=== PATIENT | male | born 1960 | race Caucasian/White ===

== ENCOUNTER 2017-10-31 07:22 | Day surgery (SDC) | payer BC ==
[~2017-10-31 07:22] MED LIST: Buffered Lidocaine 0.9% SYRIN* 5 ML/SYR SYRINGE INTRADERM ONE; Buffered Lidocaine 0.9% SYRIN* 5 ML/SYR SYRINGE ONE; DiMENhydriNATE IV* 50 MG/ML VIAL IV PUSH PRN; PROCHLORPERAZINE INJ 5 MG/ML 2 ML VIAL IV PRN; ceFAZolin 2 GM PREMIX (*) 2 GM/50 ML BAG IVPB ONE; fentaNYL* 50 MCG/ML 2 ML VIAL (100 MCG VIAL) IV PRN; oxyCODONE/Acetamin 5/325 MG* TAB PO PRN
[2017-10-31] MEDS ORDERED: KETAMINE HCL* 50 MG/ML 10 ML VIAL ONE (07:27)
[2017-10-31] MEDS ORDERED: Lidocaine 1% MPF wEPI 200,000* 30 ML SDV ONE (07:27)
[2017-10-31] MEDS ORDERED: Midazolam* 1 MG/ML 10 ML VIAL (10 MG) ONE (07:27)
[2017-10-31] MEDS ORDERED: fentaNYL* 50 MCG/ML 2 ML VIAL (100 MCG VIAL) ONE (07:27)
[2017-10-31] MEDS ORDERED: Propofol* 10 MG/ML 20 ML BTL IV PUSH ONE (08:19)
[2017-10-31] MEDS ORDERED: Lidocaine 2% PF * 5 ML VIAL ONE (08:19)
[2017-10-31] MEDS ORDERED: Ondansetron INJ* 2 MG/ML VIAL ONE (08:19)
[2017-10-31] MEDS ORDERED: Flumazenil* 0.1 MG/ML 5 ML MDV ONE (08:49)
--- NOTE | 2017-10-31 08:58 | SURGPN ---
Brief Operative Note - Surgery Procedures: Procedures Pre-OP Diagnoses: pancreatic cancer Post-op Diagnosis: same Procedure: Insertion of powerport, needle in Surgeon: Corbin Asst: none Anethesia: local, MAC EBL: minimal IVF: minimal Specimen: none Drains: none 8Fr single lumen power port via R SCV
[2017-10-31 09:37] VITALS: BP 110/59
--- NOTE | 2017-10-31 10:21 | RAD ---
INDICATION: Central line placement COMPARISON: None FINDINGS: 41.1 seconds of fluoroscopy were provided for the surgical department. Fluoroscopic spot imaging of the right chest were obtained for operative control and show placement of a right subclavian catheter in expected position terminating in the superior vena cava . CPT II Codes: 6045F (fluoro time doc)
--- NOTE | 2017-10-31 11:04 | OP ---
CC: Gary Starks MD; Juan Alberto Morocho MD * DATE OF SURGERY: 10/31/17 - [facility] DATE OF : 62 SURGEON: Michael Alaniz MD FLOUR DISTRIBUTOR: None. ANESTHESIOLOGIST: Dr. Bose. ANESTHESIA: Local MAC. PRE-OP DIAGNOSIS: Pancreatic cancer. POSTOP DIAGNOSIS: Pancreatic cancer. OPERATIVE PROCEDURE: Insertion of PowerPort. ESTIMATED BLOOD LOSS: Minimal blood loss. FLUIDS: Minimal crystalloid fluid given. An 8-Russian PowerPort inserted via the right subclavian vein. DESCRIPTION OF PROCEDURE: The patient was identified in the preoperative area, marked, brought to the operating room and placed on the operating table in supine position. Preoperative antibiotics were given. Sequential devices placed in bilateral lower extremities. Gentle sedation was given. The patient' s right upper chest and neck were clipped of hair, prepped and draped in the standard surgical fashion. Timeout was performed. Injection with lidocaine for local block was carried out and the subclavian vein on the right was accessed, a wire inserted and extended to the superior vena cava under fluoroscopy and noted to be in the appropriate position. An incision was made inferior to the wire. A pocket was made for the PowerPort. The wire was then brought into this incision site and the vein was dilated under fluoroscopy. Split-away catheter inserted and the 8-Russian tubing inserted. Split-away catheter removed. Tubing was cut to size and attached to the preflushed PowerPort along with the hub and tucked into the pocket and sutured in the pocket at the medial, lateral and at the hub site with Prolene sutures. The port was accessed and blood was aspirated and flushed with injectable saline. Skin defect was closed in typical fashion along with Steri-Strips and Tegaderm. Next we accessed with the Beltran needle the port. We again aspirated blood, injected injectable saline, and then heparinized saline and taped this to the skin. The patient tolerated the procedure well, was transferred to the PACU in stable condition. [id number]/[facility] #: [id number] [facility] SYSTEMCynthia
== END 2017-10-31 09:56 | disposition home or self-care (01) ==
LOC: OR 07:22
PROVIDERS: ATTEND Surgery
DX: C25.2 Malignant neoplasm of tail of pancreas (principal); E11.9 Type 2 diabetes mellitus without complications
CPT/HCPCS: 76000; C1788; J0690; J1642; J2001; J2250; J2405; J2704; J3010

== ENCOUNTER 2018-03-01 13:58 | Inpatient (IN) | payer BC ==
[2018-03-01] MEDS ORDERED: Ondansetron INJ* 2 MG/ML VIAL IV PRN (14:27)
[2018-03-01] MEDS ORDERED: LORazepam TAB(*) 0.5 MG PO PRN (14:32)
[2018-03-01] MEDS ORDERED: HYDROmorphone TAB* 4 MG PO PRN (14:32)
[2018-03-01] MEDS ORDERED: Pantoprazole IV* 40 MG IV ONE (16:57)
[2018-03-01] MEDS ORDERED: Pancrelipase CAP* 5,000 UNITS CAP PO SCH (17:00)
[2018-03-01] MEDS: PANCRELIPASE 24000 UNIT PO SCH (17:58)
[2018-03-01] MEDS ORDERED: LORazepam TAB(*) 1 MG PO PRN (20:24)
[2018-03-01] MEDS: Prochlorperazine TAB* 10 MG PO PRN (21:22)
[2018-03-01] MEDS: Pantoprazole IV* 80 MG in NS 0.9% 100 ML* 100 ML IVPB SCH (22:08)
--- NOTE | 2018-03-01 22:26 | CONS ---
CONSULTATION REPORT: DATE OF CONSULT: 03/01/18 REQUESTING PROVIDER: Dr. Morocho. INDICATION: Anemia and melena. NARRATIVE: Mr. Merrill is very pleasant 57-year-old gentleman who has a history of pancreatic cancer who developed black stools this morning. He states that he really has not been having much abdominal pain. He denies any GERD symptoms. No nausea. No vomiting. He does feel slightly more fatigued than normal, but nothing too bad according to him. He did present to his oncologist today and hemoglobin was 6.4 down from 8.4 just a couple of days ago. He does take naproxen at least 2 may be upwards of 6 per day for the past couple of months. He denies any vomiting. He has never had upper GI bleeding before. He is hungry. PAST MEDICAL HISTORY: Please see the HPI. Additionally, he has rhabdomyosarcoma of the left eye, hyperlipidemia and pancreatic cancer. PAST SURGICAL HISTORY: Includes left eye surgery at the age of 8 in 1970, tonsillectomy and a knee arthroscopy. MEDICATIONS UPON ADMISSION: Include: 1. Ativan. 2. Bupropion. 3. Compazine. 4. Creon. 5. Acetaminophen. 6. Dilaudid. 7. Glipizide. 8. Naproxen. 9. Paxil. 10. Simvastatin. 11. Zofran. FAMILY HISTORY: Myeloma, pancreatic cancer, coronary artery disease. SOCIAL HISTORY: He drinks 1 drink per day. No smoking. REVIEW OF SYSTEMS: Twelve systems were reviewed, other than that mentioned in the HPI were unremarkable. PHYSICAL EXAM: Temperature is 97.7, blood pressure is 132/83, pulse is 100. General: Well-appearing male in no apparent distress. Alert, oriented, pleasant and fluent. HEENT: Mucous membranes are moist without lesions, ulcers , or exudate. Neck is supple. Trachea is midline. Left eye is absent. Heart : Regular rate and rhythm. Lungs: Clear to auscultation. No wheezes, rales or rhonchi. Abdomen: Positive bowel sounds, soft, nontender, nondistended. No hepatosplenomegaly, masses, rebound or guarding. Skin is warm and dry, but pale. DIAGNOSTIC STUDIES/LAB DATA: Of note, hemoglobin is 6.2 down from 8.4, white count is 2.4, platelets 78, BUN 26, creatinine is 0.79. ASSESSMENT AND PLAN: Mr. Merrill is a very pleasant 57-year-old gentleman with a history of pancreatic cancer who presents with melena who takes naproxen. I do wonder if he could have an ulcer secondary to the naproxen. I will make sure that he has been started on a PPI. Additionally, I will make arrangements for an EGD tomorrow morning at approximately 9:30. He can have a regular diet up until midnight and liquids after. No liquids after 7 a.m. tomorrow morning. We will continue to follow on closely. [id number]/[facility] #: [id number] [facility] CENTERCynthia
[2018-03-01 23:16] LABS: Hematocrit 21 % (42-52); Hemoglobin 6.9 g/dl (14.0-18.0)
[2018-03-02 05:49] LABS: ABS Basophils 0 10^3/ul (0-0.2); ABS Eosinophils 0.1 10^3/ul (0-0.6); ABS Lymphocytes 0.5 10^3/ul (1.0-4.8); ABS Monocytes 0 10^3/ul (0-0.8); ABS Neutrophils 0.9 10^3/ul (1.5-7.7); ABS Nucleated RBC 0 10^3/ul; Eosinophil % 7.5 % (0-6); Hematocrit 22 % (42-52); Hemoglobin 7.2 g/dl (14.0-18.0); Lymphocyte % 31.8 % (25-47); Mean Corpuscular HGB Conc 32 g/dl (31-36); Mean Corpuscular Hemoglobin 24 pg (27-31); Mean Corpuscular Volume 75 fL (80-94); Mean Platelet Volume 9.9 um3 (7.4-10.4); Nucleated Red Blood Cells % 0.2; Platelet Count 56 10^3/ul (150-450); Red Blood Count 2.95 10^6/ul (4.0-5.4); Red Cell Distribution Width 26 % (10.5-15); White Blood Count 1.6 10^3/ul (3.5-10.8)
[2018-03-02 05:53] LABS: INR 1.14 (0.77-1.02)
[2018-03-02 05:55] LABS: EGFR Non-African American 118.6 (>60)
[2018-03-02] MEDS: PANCRELIPASE 24000 UNIT PO SCH (07:50)
[2018-03-02] MEDS: Pantoprazole IV* 80 MG in NS 0.9% 100 ML* 100 ML IVPB SCH ×2 (07:52→08:24)
[2018-03-02] MEDS: Prochlorperazine TAB* 10 MG PO PRN (08:17)
[2018-03-02] MEDS ORDERED: BuPROPion XL* 300 MG TAB.XL PO SCH (09:00)
[2018-03-02] MEDS ORDERED: PARoxetine HCL TAB* 10 MG PO SCH (09:00)
[2018-03-02] MEDS ORDERED: Pantoprazole IV* 80 MG in NS 0.9% 250 ML* 250 ML IVPB SCH (09:19)
--- NOTE | 2018-03-02 10:09 | PN ---
Progress Note - Progress Note Date of Service: 03/02/18 SOAP: Subjective: []Did fine overnight. Had no diarrhea. Wants to go home. Hgb stable after 2 U PRBC. Described several weeks of fatigue, dizzy for several weeks. Has had allot of difficulty with chemotherapy, sever fatigue. Hgb decrease and Tx 1 U PRBC last week. Symptoms progressed yesterday and came in for clinic. Bupropion HCl (Bupropion Xl*) 300 mg PO DAILY [facility] Last Admin: 03/02/18 08:17 Dose: 300 mg Hydromorphone HCl (Dilaudid Tab*) 4 mg PO Q4H PRN PRN Reason: PAIN Pantoprazole Sodium 80 mg/ (Sodium Chloride) 250 mls @ 25 mls/hr IVPB Q10H JACKIE Lorazepam (Ativan Tab(*)) 1 mg PO Q4H PRN PRN Reason: ANXIETY Last Admin: 03/01/18 21:22 Dose: 1 mg Ondansetron HCl (Zofran Inj*) 4 mg IV Q4H PRN PRN Reason: NAUSEA/VOMITING Pancrelipase (Creon (Nf)) 24,000 units PO TID WITH MEALS [facility] Paroxetine HCl (Paxil Tab*) 5 mg PO DAILY [facility] Last Admin: 03/02/18 08:15 Dose: Not Given Prochlorperazine (Compazine Tab*) 10 mg PO Q6H PRN PRN Reason: NAUSEA Last Admin: 03/02/18 08:17 Dose: 10 mg Objective: [] Vital Signs Temp Pulse Resp BP Pulse Ox 98.7 F 82 16 119/69 99 03/02/18 07:23 03/02/18 07:23 03/02/18 08:28 03/02/18 07:23 03/02/18 07:23 HEENT - mucosa moist CTA RRR S1S2 +BS, non tender, healed incision Ext warm and good pulses, no LUIS Assessment: []57 year old with history pancreatic cancer on second line chemotherapy with what appears to UGIB. Differential is ulcer from NSAIDs and steroids with chemotherapy, gastritis, could have bleeding from metastatic focus or tumor invation into small bowl but less likely. Unclear at this time how much of his fatigue over past several weeks has been from bleed vs side effects chemotherapy. Anemia made worse by chemotherapy induced. bone marrow suppression. Plan: []1. EGD today and pending results march d/c from hospital 2. Tx 1 additional unit PRBC now 3. Hold NSAIDS, discussed alternative pain medications. 4. Decreased counts from chemotherapy will follow. Call fever > 100.5. Tx plts < 30K given bleeding.
[2018-03-02] MEDS ORDERED: fentaNYL* 50 MCG/ML 2 ML VIAL (100 MCG VIAL) ONE (10:22)
[2018-03-02] MEDS ORDERED: Midazolam* 1 MG/ML 10 ML VIAL (10 MG) ONE (10:22)
[2018-03-02] MEDS ORDERED: PANCRELIPASE 24000 UNIT PO SCH (12:00)
[2018-03-02] MEDS: Pancrelipase CAP* 5,000 UNITS CAP PO SCH ×2 (12:41→18:41)
[2018-03-02 16:03] VITALS: BP 129/78
[2018-03-02] MEDS ORDERED: Pancrelipase CAP* 5,000 UNITS CAP PO SCH (17:00)
--- NOTE | 2018-03-02 22:48 | PRO ---
CC: Dr. Morocho. PROCEDURE REPORT: DATE OF PROCEDURE: 03/02/18. PROCEDURE PERFORMED: EGD. INDICATION: Anemia, melena. REFERRING PHYSICIAN: Dr. Morocho. MEDICATIONS GIVEN: 1. 100 mcg IV fentanyl. 2. 10 mg IV Versed. DESCRIPTION OF PROCEDURE: After the EGD procedure, including the risks, benefits, and alternatives, not limited to perforation, surgery and/or were explained to Mr. Merrill, written consent was the n obtained. IV medication was given and a bite-block was placed between the teeth. An Olympus gastr oscope was then inserted into the patient's mouth, advanced down the esophagus, into the stomach, and into the jejunum. In the esophagus at the GE junction, he surprisingly had 2 esophageal varices, on e of them was grade 3 and did have a red franki sign to it. No active bleeding was seen. The scope wa s advanced through the GE junction into the body of the stomach. He does have a previous surgical [place] operation. No abnormalities were seen in the stomach. I did not see any ulcers from his napro xen use; however, the surgical anastomosis was extremely friable with numerous superficial blood vess els that bled very easily. I did advance into the blind pouch and the afferent limb for a few centim eters, no abnormalities were seen. The scope was then withdrawn. After retroflexion maneuver within the stomach, did not reveal any gastric varices. The scope was withdrawn from the patient. A Josh 6 Shooter band ligator was placed on the tip of the scope and then reintroduced into the patient's o ropharynx down the esophagus and into the stomach. It was slightly difficult to intubate the upper e sophageal sphincter as the patient did gag a little bit. The scope was then withdrawn back into the distal esophagus, where the grade 3 esophageal varix was again encountered and a band was placed over the red franki sign. The scope was then withdrawn from the patient. He tolerated the procedure well and was returned to his hospital room in stable condition. IMPRESSION: 1. Complete upper endoscopy into the distal duodenum with esophageal variceal band ligation. 2. Esophageal varices, status post band ligation of one. 3. Inflamed surgical anastomosis. 4. I did discuss the case with his primary oncologist, Dr. Morocho. We discussed the possibility of th is being primary liver disease, unlikely to be cirrhosis, but potentially fibrosis. We also discusse d superior mesenteric vein thrombosis and/or portal vein thrombosis. [facility] and if he tolerates his diet, likely will be discharged to home with close fol lowup with Dr. Morocho for further workup of his varices. [id number]/[facility] #: [id number]
== END 2018-03-02 18:50 | disposition home or self-care (01) | DRG 663 ==
LOC: SSU 14:50
PROVIDERS: ADMIT Internal Medicine Hematology & Oncology; ATTEND Internal Medicine Hematology & Oncology
PROC: 30233N1 Transfusion of Nonautologous Red Blood Cells into Peripheral Vein, Percutaneous Approach (ICD-10-PCS; 2018-03-01)
PROC: 0D558ZZ Destruction of Esophagus, Via Natural or Artificial Opening Endoscopic (ICD-10-PCS; principal; 2018-03-02)
DX: D62 Acute posthemorrhagic anemia (principal); K92.1 Melena; C25.9 Malignant neoplasm of pancreas, unspecified; I85.00 Esophageal varices without bleeding; R73.9 Hyperglycemia, unspecified; D61.810 Antineoplastic chemotherapy induced pancytopenia; T45.1X5A Adverse effect of antineoplastic and immunosuppressive drugs, initial encounter; E78.5 Hyperlipidemia, unspecified; X58.XXXA Exposure to other specified factors, initial encounter; Y92.9 Unspecified place or not applicable; Z79.1 Long term (current) use of non-steroidal anti-inflammatories (NSAID); Z79.02 Long term (current) use of antithrombotics/antiplatelets; Z79.899 Other long term (current) drug therapy; Z85.840 Personal history of malignant neoplasm of eye; Z80.8 Family history of malignant neoplasm of other organs or systems; Z80.0 Family history of malignant neoplasm of digestive organs; Z82.49 Family history of ischemic heart disease and other diseases of the circulatory system
CPT/HCPCS: 36415; 36430; 36591; 36593; 80053; 82270; 83036; 85014; 85018; 85025; 85610; 85730; 86850; 86870; 86880; 86900; 86901; 86905; 86922; 96360; 96375; 96413; 96417; 99156; 99157; 99212; 99214; 99222; 99232; A9270-GY; G0463; J1100; J1642; J2250; J2469; J2997; J3010; J9201; J9264; P9040; Q0164

== ENCOUNTER 2018-09-21 11:25 | Inpatient (IN) | payer BC ==
--- OUTSIDE RECORDS SUMMARY | 2018-09-21 12:04 | XMS REPORT ---
:1960 External Reference #:[id number] Author Organization [employer] Address [address] [facility] [address] [place] [address] [place] [address] Phone [phone] Care Team Providers Name Role Phone Gary Starks MD Primary Care Physician Unavailable Payers Type Date Identification Numbers Payment Subscriber Provider Health Maintenance Effective: Policy Number: [facility] Lawrence Merrill Organization (O) 10/26/2016 [id number] PayID: [id number] [address] [address] [place] [address] Problems Date Description Provider Status Onset: 10/15/2016 Carcinoma of pancreas Arpita Chao M.D. Active Onset: 10/05/2016 Disorder of joint of shoulder region Raymond Kirk M.D. Active Family History Date Family Member(s) Problem(s) Comments General heart disease General cancer Social History Type Date Description Comments Lives With spouse Occupation Currently Working Occupation software database architect ETOH Use Consumes 3 glasses of wine per week Smoking Patient has never smoked Exercise Type/Frequency Exercises regularly Allergies, Adverse Reactions, Alerts Date Description Reaction Status Severity Comments 06/25/2014 NKDA active 06/25/2014 Adhesive Tape active Medications Medication Date Status Form Strength Qnty SIG Indications Ordering Provider Acetaminophen 00/00 Active Tablets 325mg 3 tabs po Unknown /0000 every 6 hrs, wean as tolerated Creon 00/[address] [id number] take 2 Unknown /0000 Part capsule before meals and 1 capsule before fatty snacks. Simvastatin 0000 Active Tablets 40mg 1 by mouth Unknown /0000 every day Afrezza 0000 Active Powder 12 units Unknown /0000 three times a day Bupropion HCL ER 0000 Active Tablets 300mg 1 by mouth Unknown (XL) /0000 ER 24HR every day Dilaudid Active Tablets 4mg one tab by Unknown /0000 mouth every 6 h as needed pain Oxycontin Active Tab ER 10mg 1 tab by Unknown /0000 12H mouth three Abuse-Det times a day Pantoprazole Active Tablets 40mg 1 by mouth Unknown Sodium /0000 DR every day Spironolactone Active Tablets 50mg 1 by mouth Unknown /0000 every day Nadolol Active Tablets 40mg 1 by mouth Unknown /0000 every day Paxil Active Tablets 10mg 10 mg by Unknown /0000 mouth daily Zofran Active Tablets 4mg take 1 by Unknown /0000 mouth twice a day as needed for nausea Lantus Solostar Active Solution 100Unit/M Unknown /0000 Pen-Injec L t Uroxatral Active Tablets 10mg take 1 tablet Unknown /0000 ER 24HR by mouth one time daily Compazine Active 10mg Unknown /0000 Crestor Hx Unknown /0000 - 10/03 Alfuzosin HCL ER Hx Tablets 10mg 1 by mouth Unknown /0000 ER 24HR every day Aspirin Hx Tablets 81mg 1 by mouth Unknown /0000 DR every day Bupropion HCL ER Hx Tablets 150mg 1 by mouth Unknown (SR) /0000 ER 12HR once a day Cefazolin Sodium Hx Solution 1gm 2 gm iv every Unknown /0000 Rec 8 hours - through 10/1610/26/16 pharmacy for IV abx is [facility] home infusion Enoxaparin Hx Solution 40mg/0.4M administer Unknown Sodium /0000 L one injection daily into subcutaneous tissue of the abdomen through 10/12/16 Lansoprazole Hx Capsules 30mg 1 by mouth Unknown /0000 DR every day - 10/04 Metoclopramide Hx Tablets 10mg 1 by mouth Unknown HCL /0000 Dispers four times a day before meals and at bedtime x 2 wks Oxycodone HCL Hx Tablets 5mg 1-2 tabs by Unknown /0000 mouth every - 4-6 hours as 10/04 Zyprexa Hx Tablets 5mg 1 by mouth Unknown /0000 qhs - 10/04 Trazodone HCL 00 Hx Tablets 50mg at bedtime as Unknown /0000 needed Cholecalciferol 00 Hx Powder Unknown /0000 Glipizide 00 Hx Tablets 5mg take 1 tablet Unknown /0000 after breakdaily Naproxen 00 Hx Tablets 250mg 1 tablet by Unknown /0000 mouth twice a day as needed pain, with foods Nadolol 00 Hx Tablets 40mg 1 by mouth Unknown /0000 every day Immunizations CPT Code Status Date Vaccine Lot # [id number] Given 09/18/2016 Influenza Virus Vaccine, Quadrivalent, Split, Preservative Free Vital Signs Date Vital Result Comment 08/30/2018 Height 67 inches 5'7" Weight 133.00 lb Heart Rate 68 /min BP Systolic 96 mmHg BP Diastolic 64 mmHg Respiratory Rate 16 /min Body Temperature 97.7 F BMI (Body Mass Index) 20.8 kg/m2 10/29/2017 Height 67 inches 5'7" Weight 162.00 lb Heart Rate 68 /min BP Systolic 124 mmHg BP Diastolic 80 mmHg Respiratory Rate 16 /min Body Temperature 97.6 F BMI (Body Mass Index) 25.4 kg/m2 10/16/2016 Height 67 inches 5'7" Weight 184.00 lb Heart Rate 88 /min BP Systolic Sitting 156 mmHg BP Diastolic Sitting 80 mmHg Respiratory Rate 14 /min Body Temperature 98.3 F BMI (Body Mass Index) 28.8 kg/m2 10/05/2016 Height 67 inches 5'7" Weight 188.00 lb Heart Rate 96 /min BP Systolic Sitting 156 mmHg BP Diastolic Sitting 92 mmHg Respiratory Rate 14 /min Body Temperature 99.4 F BMI (Body Mass Index) 29.4 kg/m2 06/25/2014 Height 67 inches 5'7" Weight 190.00 lb Heart Rate 68 /min BP Systolic 131 mmHg BP Diastolic 86 mmHg BMI (Body Mass Index) 29.8 kg/m2 Results Test Date Test Result H/L Range Note Laboratory test 10/31/2017 Point of Care 103 mg/dL High 70-100 1 finding Glucose Laboratory test 09/27/2017 Cytology [employer] SEE RESULT BELOW 2 finding Comp Metabolic Panel 10/10/2016 Sodium 137 mmol/L 133-145 Potassium 3.9 mmol/L 3.5-5.0 Chloride 104 mmol/L 101-111 Co2 Carbon Dioxide 27 mmol/L 22-32 Anion Gap 6 mmol/L 2-11 Glucose 131 mg/dL High 70-100 Blood Urea Nitrogen 8 mg/dL 6-24 Creatinine 0.89 mg/dL 0.67-1.17 BUN/Creatinine Ratio 9.0 8-20 Calcium 8.8 mg/dL 8.6-10.3 Total Protein 5.5 g/dL Low 6.4-8.9 Albumin 3.3 g/dL 3.2-5.2 Globulin 2.2 g/dL 2-4 Albumin/Globulin Ratio 1.5 1-3 Total Bilirubin 0.20 mg/dL 0.2-1.0 Alkaline Phosphatase 123 U/L High 34-104 Alt 40 U/L 7-52 Ast 69 U/L High 13-39 Egfr Non- 89.1 >60 Egfr 114.6 >60 3 Laboratory test finding 10/10/2016 C Reactive Protein 2.64 mg/L < 5.00 4 CBC Auto Diff 10/10/2016 White Blood Count 2.1 10^3/uL Low 3.5-10.8 5 Red Blood Count 3.35 10^6/uL Low 4.0-5.4 Hemoglobin 9.3 g/dL Low 14.0-18.0 Hematocrit 29 % Low 42-52 Mean Corpuscular Volume 87 fL 80-94 Mean Corpuscular Hemoglobin 28 pg 27-31 Mean Corpuscular HGB Conc 32 g/dL 31-36 Red Cell Distribution Width 14 % 10.5-15 Platelet Count 160 10^3/uL 150-450 Mean Platelet Volume 9 um3 7.4-10.4 Abs Neutrophils 1.3 10^3/uL Low 1.5-7.7 Abs Lymphocytes 0.4 10^3/uL Low 1.0-4.8 Abs Monocytes 0.3 10^3/uL 0-0.8 Abs Eosinophils 0.1 10^3/uL 0-0.6 Abs Basophils 0 10^3/uL 0-0.2 Abs Nucleated RBC 0 10^3/uL Granulocyte % 60.5 % 38-83 Lymphocyte % 19.1 % Low 25-47 Monocyte % 16.0 % High 1-9 Eosinophil % 3.8 % 0-6 Basophil % 0.6 % 0-2 Nucleated Red Blood Cells % 0.1 Laboratory test finding 10/10/2016 Erythrocyte Sed Rate 34 mm/Hr High 0- 20 Comp Metabolic Panel 10/05/2016 Sodium 139 mmol/L 133-145 Potassium 4.3 mmol/L 3.5-5.0 Chloride 104 mmol/L 101-111 Co2 Carbon Dioxide 28 mmol/L 22-32 Anion Gap 7 mmol/L 2-11 Glucose 102 mg/dL High 70-100 Blood Urea Nitrogen 11 mg/dL 6-24 Creatinine 0.96 mg/dL 0.67-1.17 BUN/Creatinine Ratio 11.5 8-20 Calcium 9.1 mg/dL 8.6-10.3 Total Protein 5.8 g/dL Low 6.4-8.9 Albumin 3.5 g/dL 3.2-5.2 Globulin 2.3 g/dL 2-4 Albumin/Globulin Ratio 1.5 1-3 Total Bilirubin 0.40 mg/dL 0.2-1.0 Alkaline Phosphatase 132 U/L High 34-104 Alt 41 U/L 7-52 Ast 102 U/L High 13-39 Egfr Non- 81.6 >60 Egfr 105.0 >60 6 Laboratory test finding 10/05/2016 C Reactive Protein 3.93 mg/L < 5.00 7 CBC Auto Diff 10/05/2016 White Blood Count 3.8 10^3/uL 3.5-10.8 Red Blood Count 3.42 10^6/uL Low 4.0-5.4 Hemoglobin 9.8 g/dL Low 14.0-18.0 Hematocrit 30 % Low 42-52 Mean Corpuscular Volume 88 fL 80-94 Mean Corpuscular Hemoglobin 29 pg 27-31 Mean Corpuscular HGB Conc 33 g/dL 31-36 Red Cell Distribution Width 14 % 10.5-15 Platelet Count 254 10^3/uL 150-450 Mean Platelet Volume 9 um3 7.4-10.4 Abs Neutrophils 2.7 10^3/uL 1.5-7.7 Abs Lymphocytes 0.6 10^3/uL Low 1.0-4.8 Abs Monocytes 0.4 10^3/uL 0-0.8 Abs Eosinophils 0.1 10^3/uL 0-0.6 Abs Basophils 0 10^3/uL 0-0.2 Abs Nucleated RBC 0 10^3/uL Granulocyte % 70.1 % 38-83 Lymphocyte % 16.9 % Low 25-47 Monocyte % 9.9 % High 1-9 Eosinophil % 2.3 % 0-6 Basophil % 0.8 % 0-2 Nucleated Red Blood Cells % 0 Laboratory test finding 10/05/2016 Erythrocyte Sed Rate 30 mm/Hr High 0- 20 1 Park Ranger: [id number] 2 SEE RESULT BELOW Name: LAWRENCE MERRILL : [address]: Gary Starks MD Acct: [id number] Unit: [id number] AGE: 56 Location: THYROID Re09/27/17 SEX: M Status: REG REF SPEC: [id number] SHUBHAM: 09/27/17-[address]: Gary Starks MD REQ: [id number] RECD: 09/27/17-0 STATUS: FELICIA KNOWLES DR: Sedrick Schmidt MD _ ORDERED: FNA-IMG GUID BX/2, CYTO ADEQ-1ST P/2 FINAL DIAGNOSIS 1) Thyroid, left, Ultrasound guided, fine needle aspiration: Benign thyroid nodule-colloid/hyperplastic ([place] class II) 2) Thyroid, isthmus, Ultrasound guided, fine needle aspiration: Benign thyroid nodule-involutional type ([place] class II) 1) The specimen demonstrates abundant watery colloid, a moderate amount of benign appearing follicular epithelium arranged in uniform sheets, medium sized follicles and only occasional small groups. No features of papillary carcinoma are seen. In this clinical setting the risk of malignancy is less than 3%. Clinical management of this thyroid nodule should be based on clinical and radiographic features as well as the above. 2) The specimen demonstrates abundant watery proteinaceous fluid, a modest amount of benign appearing follicular epithelium arranged in uniform sheets, medium sized follicles and only occasional small groups. Abundant pigmented and non-pigmented macrophages are seen in the background. No features of papillary carcinoma are seen. In this clinical setting the risk of malignancy is less than 3%. Clinical management of this thyroid nodule should be based on clinical CONTINUED ON NEXT PAGE * ML=Testing performed at Main Lab DEPARTMENT OF PATHOLOGY, [address] [place] [address] Camacho Fuentes M.D. Director [facility] # [id number] RUN DATE: 09/27/17 [facility] LAB LIVE PAGE 2 Patient: LAWRENCE MERRILL [id number] (Continued) SPECIMEN COMMENTS (Continued) and radiographic features as well as the above findings. 1. THYROID LEFT - US GUIDED FINE NEEDLE ASPIRATION, 2. THYROID ISTHMUS - US GUIDED FINE NEEDLE ASPIRATION CLINICAL HISTORY 1) Left nodule-3.6x 1.9x 2.1cm 2) Isthmus nodule-2.8x 1.9x 2.2cm IMMEDIATE INTERPRETATION 1) Pass 1-adequate 2) Pass 1-adequate GROSS DESCRIPTION 1) 1 - alcohol fixed slide(s) 1 - passes 2) 4 - alcohol fixed slide(s) 1 - passes Signed (signature on file) Camacho Fuentes MD [id number] END OF REPORT * ML=Testing performed at Main Lab DEPARTMENT OF PATHOLOGY, [address] [place] [address] Camacho Fuentes M.D. Director [facility] # [id number] 3 Because ethnic data is not always readily available, this report includes an eGFR for both -Americans and non- Americans. The National Kidney Disease Education Program (NKDEP) does not endorse the use of the MDRD equation for patients that are not between the ages of 18 and 70, are , have extremes of body size, muscle mass, or nutritional status, or are non- or non-. According to the National Kidney Foundation, irrespective of diagnosis, the stage of the disease is based on the level of kidney function: Stage Description GFR(mL/min/1.73 m(2)) 1 Kidney damage with normal or decreased GFR 90 2 Kidney damage with mild decrease in GFR 60-89 3 Moderate decrease in GFR 30-59 4 Severe decrease in GFR 15-29 5 Kidney failure <15 (or dialysis) 4 Acute inflammation: >10.00 5 Consistent with previous results on 8. 6 Because ethnic data is not always readily available, this report includes an eGFR for both -Americans and non- Americans. The National Kidney Disease Education Program (NKDEP) does not endorse the use of the MDRD equation for patients that are not between the ages of 18 and 70, are , have extremes of body size, muscle mass, or nutritional status, or are non- or non-. According to the National Kidney Foundation, irrespective of diagnosis, the stage of the disease is based on the level of kidney function: Stage Description GFR(mL/min/1.73 m(2)) 1 Kidney damage with normal or decreased GFR 90 2 Kidney damage with mild decrease in GFR 60-89 3 Moderate decrease in GFR 30-59 4 Severe decrease in GFR 15-29 5 Kidney failure <15 (or dialysis) 7 Acute inflammation: >10.00 Procedures Date CPT Code Description Status 10/31/2017 64452 Fluoroscopic Guidance For Cent Completed 10/31/2017 07898 Insertion Tunneled Cent Venous Cathr W Subcut Port 5 Completed Yrs Or Oldr 04/23/2012 41862 Rad Shoulder Comp, Min. 2 Views Completed Encounters Type Date Location Provider CPT E/M Dx Office Visit 10/29/2017 [facility] [place] [address] C25.2 10:15a Scrum Master Office Visit 10/16/2016 [facility] Simón Alexander, [address] Z79.2 1:20p Infectious Diseases Cornel B95.61 D72.818 T36.1x5A Office Visit 10/05/2016 1:20p [facility] Simón Alexander, [address] Z79.2 Infectious Diseases Cornel B95.61 Z85.07 Office Visit 06/25/2014 9:00a [facility] M.D. 16630 716.81 C.M.A. Office Visit 06/06/2012 9:15a [facility] M.D. 10529 726.2 C.M.A. Office Visit 05/10/2012 9:15a [facility] M.D. 08166 840.7 C.M.A. Office Visit 04/23/2012 10:30a [facility] M.D. 56836 840.7 C.M.A. Plan of Care 08/30/2018 - Miguel Khan MD, [id number] Bi inguinal hernia, w/o obst or gangrene, not spcf as recurComments:Will discuss repair with Dr. Morocho before deciding to proceed with surgery.Recommendations:Open left inguinal hernia repair with mesh.
[2018-09-21] MEDS ORDERED: NS 0.9% 1000 ML* 1,000 ML IV ONE (12:05)
[2018-09-21] MEDS ORDERED: HYDROmorphone INJ1* 1 MG/ML SYRINGE IV SLOW PU ONE (12:05)
[2018-09-21] MEDS ORDERED: Ondansetron INJ* 2 MG/ML VIAL IV ONE (12:05)
--- NOTE | 2018-09-21 13:05 | RAD ---
INDICATION: Small bowel obstruction. COMPARISON: Comparison is made with a prior CT of the abdomen and pelvis from September 09, 2018. TECHNIQUE: Frontal supine films of the abdomen were obtained. FINDINGS: The small bowel and colon appear nondistended. Several surgical clips and sutures project in the left upper quadrant. IMPRESSION: NO EVIDENCE FOR OBSTRUCTION.
[2018-09-21 13:24] LABS: ABS Basophils 0.1 10^3/ul (0-0.2); ABS Eosinophils 0.1 10^3/ul (0-0.6); ABS Lymphocytes 1.2 10^3/ul (1.0-4.8); ABS Monocytes 0.8 10^3/ul (0-0.8); ABS Neutrophils 4.6 10^3/ul (1.5-7.7); ABS Nucleated RBC 0 10^3/ul; Hematocrit 33 % (42-52); Hemoglobin 10.8 g/dl (14.0-18.0); Lymphocyte % 17.7 % (25-47); Mean Corpuscular HGB Conc 32 g/dl (31-36); Mean Corpuscular Hemoglobin 25 pg (27-31); Mean Corpuscular Volume 78 fL (80-94); Nucleated Red Blood Cells % 0; Platelet Count 314 10^3/ul (150-450); Red Blood Count 4.26 10^6/ul (4.00-5.40); Red Cell Distribution Width 17 % (10.5-15); White Blood Count 6.8 10^3/ul (3.5-10.8)
--- NOTE | 2018-09-21 13:30 | ED ---
Abdominal Pain/Male - HPI Summary HPI Summary: Patient is a 57 y/o M w/ c/o cramping abdominal pain onsetting last night. Pain is noted to be intermittent and described as squeezing. He reports some nausea, no diarrhea/vomiting. Patient's notes that patient has been passing gas frequently. Patient reports that he has a blood clot in his liver, diagnosed ten days ago, and is concerned that it is blocking something. Patient is on Lovenox for the blood clot. He additionally has pancreatic cancer, patient sees Dr. Morocho. Patient is on chemo, last treatment was two weeks ago. He has had radiation therapy before, none presently. Patient notes that he is being treated for ecoli infection in blood stream as well. On triage, pain is rated 5/ 10, nothing is reported to alleviate/aggravate Sx. Home medications and allergies are reviewed. - History of Current Complaint Chief Complaint: EDAbdPain Stated Complaint: ABD PAIN Time Seen by Provider: 09/21/18 11:50 Hx Obtained From: Patient Onset/Duration: Lasting Days - onset last night, Still Present Timing: Intermittent, Lasting Days - onset last night Severity Currently: Moderate - 5/10 Pain Intensity: 5 Pain Scale Used: 0-10 Numeric - 5/10 Character: Other: - squeezing Aggravating Factor(s): Nothing Alleviating Factor(s): Nothing Associated Signs And Symptoms: Positive: Nausea, Other - patient is passing gas frequently. Negative: Vomiting, Diarrhea - Allergies/Home Medications Allergies/Adverse Reactions: Allergies Allergy/AdvReac Type Severity Reaction Status Date / Time Adhesive Tape Allergy Rash Verified 01/30/18 08:25 Home Medications: Home Medications Afrezza 12 units .ROUTE DAILY 09/21/18 [History Confirmed 09/21/18] Alfuzosin HCl [Alfuzosin HCl ER] 1 tab PO DAILY 09/21/18 [History Confirmed ] Amoxicillin/Potassium Clav 875 mg PO DAILY 09/21/18 [History Confirmed 09/21/18] Lantus Solostar 5x3 ML PENS 1 dose .ROUTE DAILY 09/21/18 [History Confirmed ] Lovenox 100 mg SUBCUT DAILY 09/21/18 [History Confirmed 09/21/18] Nadolol 40 mg PO DAILY 09/21/18 [History Confirmed 09/21/18] Nucynta 50 mg PO BID 09/21/18 [History Confirmed 09/21/18] Oxycontin 10 mg (*) 10 mg PO TID 09/21/18 [History Confirmed 09/21/18] Pantoprazole Sodium [Protonix] 40 mg PO BID 09/21/18 [History Confirmed 09/21/18 ] PMH/Surg Hx/FS Hx/Imm Hx Endocrine/Hematology History: Reports: Hx Blood Transfusions, Hx Diabetes Denies: Hx Systemic Lupus Erythematosus, Hx Anemia Cardiovascular History: Reports: Other Cardiovascular Problems/Disorders - hyperlipidemia Denies: Hx Congestive Heart Failure, Hx Hypertension, Hx Pacemaker/ICD Respiratory History: Reports: Hx Seasonal Allergies GI History: Reports: Hx Gastrointestinal Bleed - currently, Other GI Disorders - pancreatic cancer, recent thyroid nodule found Denies: Hx Jaundice History: Reports: Hx Benign Prostatic Hyperplasia, Other Problems/ Disorders - BPH - followed by dr coker Denies: Hx Dialysis, Hx Renal Disease Musculoskeletal History: Reports: Hx Arthritis Denies: Hx Rheumatoid Arthritis Sensory History: Reports: Hx Contacts or Glasses Denies: Hx Hearing Aid Opthamlomology History: Reports: Hx Contacts or Glasses Psychiatric History: Reports: Hx Depression Denies: Hx Panic Disorder - Cancer History Cancer Type, Location and Year: PANCREATIC Hx Chemotherapy: Yes Hx Radiation Therapy: No - Surgical History Surgery Procedure, Year, and Place: tonsillectomy as a child. LT EYE PROSTHETIC 1968 ( WON'T WEAR- HAS BEEN CLEARED FOR MRI [address] HIDALGO). right knee arthroscopy 1991. powerport insertion 2014. whipple procedure 2016. HEAD OF PANCREASE Hx Anesthesia Reactions: No Infectious Disease History: No Infectious Disease History: Denies: Traveled Outside the [place] in Last 30 Days - Family History Known Family History: Negative: Blood Disorder - Social History Alcohol Use: None Alcohol Amount: NOT SINCE DIAGNOSIS Substance Use Type: Reports: None Smoking Status (MU): Never Smoked Tobacco Review of Systems Negative: Fever - on vitals, temp is 98.6 F Positive: Abdominal Pain, Nausea, Other - passing gas frequently . Negative: Vomiting, Diarrhea All Other Systems Reviewed And Are Negative: Yes Physical Exam - Summary Physical Exam Summary: Appearance: Well appearing, no pain distress Skin: warm, dry, reflects adequate perfusion; scar over abdomen Head/face: normal Eyes: left eye enucleation, chronic ENT: normal Neck: supple, non-tender Respiratory: CTA, breath sounds present Cardiovascular: RRR, pulses symmetrical Abdomen: diffuse tenderness, soft Bowel: present Musculoskeletal: normal, strength/ROM intact Neuro: normal, sensory motor intact, A&Ox3 Triage Information Reviewed: Yes Vital Signs On Initial Exam: Initial Vitals Temp Pulse Resp BP Pulse Ox 98.6 F 67 14 0/0 100 09/21/18 11:34 09/21/18 11:34 09/21/18 11:34 09/21/18 11:34 09/21/18 11:34 Vital Signs Reviewed: Yes Diagnostics - Vital Signs Vital Signs Temp Pulse Resp BP Pulse Ox 09/21/18 13:09 20 09/21/18 11:34 98.6 F 67 14 0/0 100 - Laboratory Result Diagrams: 09/21/18 13:13 09/21/18 13:13 Lab Statement: Any lab studies that have been ordered have been reviewed, and results considered in the medical decision making process. - Radiology ABDOMEN X-RAY Radiology Interpretation Completed By: Radiologist Summary of Radiographic Findings: NO EVIDENCE FOR OBSTRUCTION, THIS REPORT WAS REVIEWED BY ED PHYSICIAN. - CT ABD/PEL CT CT Interpretation Completed By: Radiologist Summary of CT Findings: IMPRESSION: 1. FINDINGS SUGGESTIVE OF A PARTIAL MID SMALL BOWEL OBSTRUCTION. 2. INTERVAL RESOLUTION OF THE PREVIOUSLY NOTED HETEROGENEOUS HEPATIC ENHANCEMENT AND. SUPERIOR MESENTERIC VEIN THROMBUS. 3. MULTIPLE HYPODENSE HEPATIC LESIONS SUSPICIOUS FOR METASTATIC DISEASE, UNCHANGED. 4. ILL-DEFINED SOFT TISSUE DENSITY MASS IN THE LEFT UPPER QUADRANT LIKELY REPRESENTING. LOCAL RECURRENT DISEASE. 5. SMALL AMOUNT OF ASCITES. THIS REPORT WAS REVIEWED BY ED PHYSICIAN. Re-Evaluation - Re-Evaluation First Eval Re-Evaluation Time: 13:30 Comment: Discussed results of x-ray, patient is agreeable with additional imaging. Second Eval Re-Evaluation Time: 15:35 Comment: Discussed results of CT abd/pel with patient, Dr. Ron will be consulted on patient's case for possible admission Abdominal Pain Fem Course/Dx - Course Course Of Treatment: Patient is a 57 y/o M w/ c/o cramping abdominal pain onsetting last night. Pain is noted to be intermittent and described as squeezing. He reports some nausea, no diarrhea/vomiting. Patient's notes that patient has been passing gas frequently. Patient reports that he has a blood clot in his liver, diagnosed ten days ago, and is concerned that it is blocking something. Patient is on Lovenox for the blood clot. He additionally has pancreatic cancer, patient sees Dr. Morocho. Patient is on chemo, last treatment was two weeks ago. He has had radiation therapy before, none presently. Patient notes that he is being treated for ecoli infection in blood stream as well. On physical exam, patient is noted to have diffuse abdominal tenderness, abdominal scar, and left eye enucleation. During ED course, patient received Zofran, dilaudid, and fluids. Bloodwork was obtained. ABDOMEN X-RAY SHOWED NO EVIDENCE FOR OBSTRUCTION. Patient was agreeable with further imaging. ABD/PEL CT IMPRESSION: 1. FINDINGS SUGGESTIVE OF A PARTIAL MID SMALL BOWEL OBSTRUCTION. 2. INTERVAL RESOLUTION OF THE PREVIOUSLY NOTED HETEROGENEOUS HEPATIC ENHANCEMENT AND. SUPERIOR MESENTERIC VEIN THROMBUS. 3. MULTIPLE HYPODENSE HEPATIC LESIONS SUSPICIOUS FOR METASTATIC DISEASE, UNCHANGED. 4. ILL- DEFINED SOFT TISSUE DENSITY MASS IN THE LEFT UPPER QUADRANT LIKELY REPRESENTING. LOCAL RECURRENT DISEASE. 5. SMALL AMOUNT OF ASCITES. 1600 - Patient's case was discussed with Dr. Ron, he will come to ED to evaluate patient. 1730 - After evaluating patient, Dr. Ron accepts patient for admission. Dx of abdominal pain, SBO, and pancreatic cancer. - Diagnoses Differential Diagnosis/HQI/PQRI: Bowel Obstruction, Diverticulitis, Pancreatitis , Renal Colic, Urinary Tract Infection Provider Diagnoses: Abdominal pain, SBO (small bowel obstruction), Pancreatic cancer - Provider Notifications Discussed Care Of Patient With: Ender Ron Time Discussed With Above Provider: 16:00 Instructed by Provider To: Other - 1600 - Patient's case was discussed with Dr. Ron, he will come to ED to evaluate patient. 1730 - After evaluating patient, Dr. Ron accepts patient for admission. Discharge - Sign-Out/Discharge Documenting (check all that apply): Patient Departure - admit - Discharge Plan Condition: Good Disposition: ADMITTED TO [facility] Referrals: Gary Starks MD [Primary Care Provider] - - Billing Disposition and Condition Condition: GOOD Disposition: Admitted to [facility] - Attestation Statements Document Initiated by Scribe: Yes Documenting Scribe: Maximus Quiroz Provider For Whom Martyibe is Documenting (Include Credential): Hao Delgado MD Scribe Attestation: Maximus Masters , scribed for Hao Delgado MD on 09/21/18 at 1756. Scribe Documentation Reviewed: Yes Provider Attestation: The documentation as recorded by the scribeMaximus accurately reflects the service I personally performed and the decisions made by me, Hao Delgado MD
[2018-09-21 13:41] LABS: EGFR Non-African American 94.5 (>60); INR 1.08 (0.77-1.02)
[2018-09-21] MEDS ORDERED: Iodixanol* (CONTRAST) 320 MG/ML 100 ML SDV IV ONE (14:25)
--- NOTE | 2018-09-21 15:28 | RAD ---
INDICATION: Pancreatic cancer, abdominal pain. COMPARISON: Comparison is made with a prior CT of the abdomen and pelvis from September 09, 2018. TECHNIQUE: A CT scan of the abdomen and pelvis was performed with intravenous and with oral contrast following intravenous injection of 71 ml of Visipaque 320 nonionic contrast during the hepatic arterial and portal venous phases.. Contiguous axial sections were obtained from the lung bases through the symphysis pubis. Images were reconstructed in the coronal and sagittal planes. FINDINGS: LUNG BASES: The lung bases are clear. No pleural effusion is present. LIVER: The liver is normal in size. The previously noted heterogeneous enhancement of the liver has largely resolved. There are multiple small areas of decreased attenuation present within the left and right hepatic lobes which are nonspecific finding although suspicious for metastatic disease and unchanged from the prior study. These appear more prominent than on exam from July 23, 2018. The previously noted thrombus within the superior mesenteric vein appears to have resolved. GALLBLADDER: The patient is status post cholecystectomy. BILE DUCTS: There is pneumobilia within the left hepatic lobe. No ductal distention is seen. There is mild periportal edema. SPLEEN: The spleen is normal in size with heterogeneous contrast opacification. PANCREAS: The patient is status post Whipple procedure. There is an ill-defined soft tissue density mass present in the left upper quadrant adjacent to the lesser curvature of the stomach and anterior to the left adrenal gland. This is heterogeneous with areas of soft tissue density and decreased attenuation. This area measures approximately 5.0 x 3.6 cm in size and appears similar to the prior exam and more prominent than on the prior study from January 2018. ADRENAL GLANDS: The adrenal glands are normal in size. KIDNEYS: The kidneys are normal in size. No renal calculi or hydronephrosis is seen. No significant focal renal abnormality is seen. AORTA: The aorta is normal in caliber with moderate calcific plaque present. LYMPH NODES: There are enlarged mesenteric lymph nodes present in the upper and mid abdomen measuring up to 1.1 cm in size. No enlarged retroperitoneal lymph nodes are seen. BOWEL: The stomach is nondistended. There is moderate distention of the proximal and mid small bowel. The distal small bowel and colon are nondistended. The appendix appears to be within normal limits. There are scattered diverticula within the colon. There is no evidence for diverticulitis or colitis. PELVIC ORGANS: No bladder wall thickening is seen. The prostate gland appears enlarged and heterogeneous in density. PERITONEUM: There is a small amount of free intraperitoneal fluid present within the pelvis. No free intraperitoneal air is seen. BONES: There is a 0.7 cm hypodense lesion in the L5 vertebral body which is unchanged from prior studies. IMPRESSION: 1. FINDINGS SUGGESTIVE OF A PARTIAL MID SMALL BOWEL OBSTRUCTION. 2. INTERVAL RESOLUTION OF THE PREVIOUSLY NOTED HETEROGENEOUS HEPATIC ENHANCEMENT AND SUPERIOR MESENTERIC VEIN THROMBUS. 3. MULTIPLE HYPODENSE HEPATIC LESIONS SUSPICIOUS FOR METASTATIC DISEASE, UNCHANGED. 4. ILL-DEFINED SOFT TISSUE DENSITY MASS IN THE LEFT UPPER QUADRANT LIKELY REPRESENTING LOCAL RECURRENT DISEASE. 5. SMALL AMOUNT OF ASCITES.
[2018-09-21] MEDS ORDERED: HYDROmorphone INJ* 2 MG/ML CARPUJECT SYRINGE IV SLOW PU ONE (16:02)
[2018-09-21] MEDS ORDERED: HYDROmorphone INJ1* 1 MG/ML SYRINGE ONE (16:44)
[2018-09-21] MEDS ORDERED: Morphine INJ* 4 MG/ML 1 ML SYRINGE (NEW SYRINGE VERSION) IV PRN ×2 (17:42→17:51)
[2018-09-21] MEDS ORDERED: cefTRIAXone(*) 1 GM in NS 0.9% 50 ML* 50 ML IVPB SCH (17:49)
[2018-09-21] MEDS ORDERED: Morphine VIAL* 4 MG/ML VIAL (1 ml vial) IV PRN ×2 (19:20→19:21)
[2018-09-21] MEDS: cefTRIAXone(*) 1 GM in NS 0.9% 50 ML* 50 ML IVPB SCH (19:22)
[2018-09-21] MEDS: NS 0.9% 1000 ML* 1,000 ML IV SCH (19:22)
[2018-09-21] MEDS: Enoxaparin(*) 100 MG/ML SYR SUBCUT SCH (20:01)
[2018-09-21] MEDS: Ondansetron INJ* 2 MG/ML VIAL IV PRN (21:00)
--- NOTE | 2018-09-21 21:31 | HP ---
ADMISSION HISTORY AND PHYSICAL: DATE OF ADMISSION: 09/21/18 REASON FOR ADMISSION: Small bowel obstruction in the setting of metastatic pancreatic carcinoma. HISTORY OF PRESENT ILLNESS: Mr. Merrill is a 57-year-old male originally diagnosed with pancreatic carcinoma in the fall of 2014. For details of his pancreatic cancer history, please see below. He has recently been treated with Gemzar and Abraxane. Upon initially resuming in April 2018, this was every 2 weeks, but more recently every 3 weeks and was most recently treated on . On 09/09/18, the day of his most recent chemotherapy, he reports tolerating it poorly, being very fatigued and with a decreased appetite. On that same date, a CT scan of the abdomen and pelvis was performed due to abdominal pain. This revealed wedge-shaped areas of nonenhancement in the liver. There was a decrease in the portal vein flow. There was a filling defect in the superior mesenteric vein consistent with thrombus. Areas of portal vein thrombosis were felt to be likely. The patient was started on Lovenox at 100 mg daily given his weight of approximately 130 pounds. Three days later, he developed fevers and rigors. Blood cultures were positive for E. coli in 4/4 bottles and he was started on Augmentin. Repeat blood cultures were negative on 09/18/18 while he remained on Augmentin. The patient was seen in the office on 09/19/[address] Morocho for routine followup. At that time, there was consideration for whether his cancer may be progressing and whether his clinical course might be better off chemotherapy than continuing it. He was considering what to do about this. Repeat liver function tests were obtained, which were a little different. CA 19 -9 was dramatically higher having gone from 226 one month ago to 2036. He was changed in terms of pain medications at that time because he did not feel as though his long-acting narcotic was particularly helping. He was discontinued from OxyContin 10 mg t.i.d. and was started on Nucynta. First dose that he took of Nucynta was actually 09/20/18. Dosing of the Nucynta was 50 mg b.i.d. The patient had ongoing abdominal pain in his right upper quadrant, which was slowly improving, likely due to improvement in the clot, but still having significant pain in his left upper quadrant. Yesterday, 09/20/18, at about 5 p.m., the pain in the abdomen got much worse. He and by bedtime, the pain was unbearable. He did not take his usual Dilaudid at bedtime as he is unsure of the interaction with his new medication of Nucynta. Reports overnight been unable to find a comfortable position, had some mild nausea for which he took Gas-X without significant relief, tried using a heating pad with only minimal relief. He did not take any antiemetics. He reports he did have a soft and slightly loose bowel movement yesterday, but none since, has continued passing gas. Today, he has only taken a few sips of water and then the oral contrast for his CT scan. He reports that the pain is present throughout the abdomen. It is intermittent and a squeezing sensation. Nothing is reported to either alleviate or aggravate the symptoms other than heating pad helping slightly. He called our office this morning and was advised to go to the emergency room, which he did. Workup there included plain film of the abdomen, which was unremarkable followed by a CT scan showing small bowel obstruction and other findings as discussed below. Recommendation is for him to be admitted to the hospital for small bowel obstruction. PAST MEDICAL HISTORY: Pancreatic cancer originally diagnosed in the fall with encasement of the SMA and likely the SMV with adenopathy of less than 1 cm and a mass in the uncinate process of the pancreas. In October 2015, found to have a 4.2 x 3.8 cm mass in the pancreas with a 17-mm lymph node, which was biopsied and positive for pancreatic adenocarcinoma. He was started on chemotherapy with FOLFIRINOX. By December of 2015, doses were reduced. By CT and MRI in February 2016, there was continued response to this therapy. He was reevaluated by [facility] at [facility] but continued involvement of the SMA. He was treated with radiation therapy and Xeloda from May to June of 2016 and then had surgery in August of 2016 with a Whipple procedure. At that time, no lymph nodes were involved. The mass in the uncinate process of the pancreas was 2.9 cm. There was no obvious residual carcinoma. In September of 2017, there was recurrence in the tail of the pancreas, which was biopsy proven. He resumed chemotherapy with FOLFIRINOX in October of 2017 with stable disease after 3 cycles. He was switched to Gemzar and Abraxane due to the inability to tolerate continued FOLFIRINOX in January of 2018. This was held in February of 2018 due to a GI bleed with varices. Chemotherapy was resumed in April of 2018 at lower dose, initially every 14 days and more recently every 21 days. The patient reports a weight loss of total of 70 pounds in 2 to 3 years and has continued losing weight recently and is down 10 to 12 pounds in the past month. Past medical history is otherwise significant for: 1. Tonsillectomy as a child. 2. Left eye prosthesis in 1968. 3. GI bleed as discussed above. 4. Diabetes mellitus. 5. Depression. 6. Hypercholesterolemia. No hypertension, SD, or CVA. MEDICATIONS: 1. Bupropion 300 mg daily. 2. Compazine 10 mg four times a day p.r.n. 3. Creon 4 capsules t.i.d. 4. Dilaudid 4 mg q.4 hours p.r.n. 5. Lantus 12 units subcutaneously daily. 6. Nadolol 40 mg daily. 7. OxyContin recently discontinued, now on Nucynta 50 mg b.i.d. 8. Pantoprazole 40 mg daily. 9. Paxil 10 mg daily. 10. Simvastatin 40 mg daily, recently discontinued, also spironolactone. 11. Uroxatral 10 mg daily. 13. Zofran 4 mg 6 times per day p.r.n. 14. Inhaled insulin Afrezza 12 to 24 units t.i.d. ALLERGIES: None. FAMILY HISTORY: Negative for malignancy. REVIEW OF SYSTEMS: Energy level has been poor, has been losing weight recently , appetite down. No significant shortness of breath, chest pain, or palpitations. No significant arthritic or bony complaints. No major back pain. No difficulty with bladder. No further fevers, chills, sweats, or other signs of infections since start of the antibiotics for the E. coli infection. Review of systems is otherwise negative except as discussed above. PHYSICAL EXAMINATION VITAL SIGNS: Blood pressure of 120/72, pulse 58, temperature 99.1, O2 saturation 98% on room air. HEENT: PERRL, EOMI. Dry mucous membranes. No thrush. Left eye enucleation. LYMPH NODES: No palpable cervical, supraclavicular, or axillary adenopathy. LUNGS: Clear. HEART: Regular rate and rhythm without murmurs, rubs, or gallops. ABDOMEN: Occasional bowel sounds are present, some of which are normal and some of which are high pitched. Diffuse tenderness especially on the left side without guarding or rebound. BACK: No CVA or spinal tenderness. EXTREMITIES: No clubbing, cyanosis, or edema. PSYCHIATRIC: The patient is alert and oriented x3. LABORATORY DATA: CBC: White count 6800, hematocrit 33, hemoglobin 10.8, platelet count 314,000. Chemistry studies: Sodium 130, potassium 4.0, chloride 95, bicarb 26, BUN 13, creatinine 0.84, glucose 230. Transaminases are normal. Bilirubin 0.7, alk phos 975 in similar range to how it has been over the past month, but higher than earlier values. CA 19-9 on 09/19/18 is marked elevated from previous baseline; it is now 2036. IMPRESSION AND PLAN: A 57-year-old male with advanced pancreatic carcinoma, who recently has been not tolerating chemotherapy well with significant fatigue and weight loss and also significant recent complications of Escherichia coli bacteremia and of clots in the liver. He has been placed recently on Augmentin and Lovenox. He now has developed a small bowel obstruction. It is unclear whether this is due to prior radiation and surgery or whether this is due to progression of disease. Most recent CT scan reveals that the liver no longer has a heterogeneous enhancement; this has resolved. There are some nonspecific areas of decreased attenuation suspicious for metastatic disease, but these are unchanged from the prior study. There is a mass present in the left upper quadrant adjacent to the lesser curvature of the liver and the left adrenal gland. This measures 5 cm and appears similar to before, although more prominent than in January. There is no significant adenopathy. There is moderate distention of the proximal and mid small bowel. There is no evidence for any colitis. Small amount of ascites is present. 1. Small bowel obstruction. The patient will be put on bowel rest, his oral medications held, pain medications will be given. Given the fact that he has not had significant nausea or vomiting, there is no need for an NG tube at this point. Plain film of the abdomen did not show a small bowel obstruction, although only supine films were obtained. Upright film of the abdomen will be obtained tomorrow and we will check his clinical symptoms to see if we can advance his diet at that time. Pain medications will be given with IV morphine, oral medications will be held. 2. Recent clots in the liver. He is currently on Lovenox at full therapeutic doses of 100 mg daily; this will be continued. 3. Recent Escherichia coli bacteremia with pansensitive organism. He has been on Augmentin at home. He will be given ceftriaxone 1 g IV daily. 4. Metastatic pancreatic carcinoma. He is failing current therapy given the marked rise in his CA 19-9, given the marked rise in alk phos and given his inability to tolerate therapy. He is considering whether to continue therapy or discontinue it. This was already discussed with him in the office of Dr. Morocho on 09/19/18. He and his may or may not contact the providers at [facility] for further recommendations. 5. Diabetes mellitus. Given the fact he will be n.p.o., we will follow his blood sugars with fingersticks q.6 hours, will be given a coverage if needed if blood sugars were over 250. [id number]/[facility] #: [id number] [facility]
[2018-09-21] MEDS: HYDROmorphone INJ1* 1 MG/ML SYRINGE IV PRN (21:43)
[2018-09-22] MEDS: Ondansetron INJ* 2 MG/ML VIAL IV PRN ×3 (03:03→13:38)
[2018-09-22] MEDS: HYDROmorphone INJ1* 1 MG/ML SYRINGE IV PRN ×7 (03:03→20:49)
[2018-09-22] MEDS: NS 0.9% 1000 ML* 1,000 ML IV SCH ×2 (05:53→16:24)
[2018-09-22 06:14] LABS: EGFR Non-African American 106.1 (>60)
[2018-09-22 06:41] LABS: ABS Basophils 0.1 10^3/ul (0-0.2); ABS Eosinophils 0.1 10^3/ul (0-0.6); ABS Lymphocytes 0.8 10^3/ul (1.0-4.8); ABS Monocytes 0.6 10^3/ul (0-0.8); ABS Neutrophils 3.3 10^3/ul (1.5-7.7); ABS Nucleated RBC 0 10^3/ul; Eosinophil % 2.8 % (0-6); Hematocrit 28 % (42-52); Hemoglobin 8.9 g/dl (14.0-18.0); Lymphocyte % 16.2 % (25-47); Mean Corpuscular HGB Conc 32 g/dl (31-36); Mean Corpuscular Hemoglobin 25 pg (27-31); Mean Corpuscular Volume 79 fL (80-94); Nucleated Red Blood Cells % 0.1; Platelet Count 214 10^3/ul (150-450); Red Blood Count 3.51 10^6/ul (4.00-5.40); Red Cell Distribution Width 17 % (10.5-15); White Blood Count 4.9 10^3/ul (3.5-10.8)
[2018-09-22] MEDS: PROCHLORPERAZINE INJ 5 MG/ML 2 ML VIAL IV PRN ×2 (16:23→22:05)
[2018-09-22] MEDS: cefTRIAXone(*) 1 GM in NS 0.9% 50 ML* 50 ML IVPB SCH (19:43)
[2018-09-22] MEDS: Enoxaparin(*) 100 MG/ML SYR SUBCUT SCH (19:43)
[2018-09-23] MEDS: HYDROmorphone INJ1* 1 MG/ML SYRINGE IV PRN ×7 (00:01→22:53)
[2018-09-23] MEDS: NS 0.9% 1000 ML* 1,000 ML IV SCH ×3 (02:44→22:55)
[2018-09-23] MEDS: PROCHLORPERAZINE INJ 5 MG/ML 2 ML VIAL IV PRN ×3 (05:37→18:19)
[2018-09-23 05:41] LABS: ABS Basophils 0 10^3/ul (0-0.2); ABS Eosinophils 0.1 10^3/ul (0-0.6); ABS Lymphocytes 0.8 10^3/ul (1.0-4.8); ABS Monocytes 0.5 10^3/ul (0-0.8); ABS Neutrophils 1.8 10^3/ul (1.5-7.7); ABS Nucleated RBC 0 10^3/ul; Eosinophil % 3.4 % (0-6); Hematocrit 27 % (42-52); Hemoglobin 8.5 g/dl (14.0-18.0); Lymphocyte % 24.9 % (25-47); Mean Corpuscular HGB Conc 32 g/dl (31-36); Mean Corpuscular Hemoglobin 25 pg (27-31); Mean Corpuscular Volume 80 fL (80-94); Mean Platelet Volume 9.4 um3 (7.4-10.4); Nucleated Red Blood Cells % 0; Platelet Count 209 10^3/ul (150-450); Red Blood Count 3.39 10^6/ul (4.00-5.40); Red Cell Distribution Width 16 % (10.5-15); White Blood Count 3.3 10^3/ul (3.5-10.8)
[2018-09-23 05:53] LABS: EGFR Non-African American 116.7 (>60)
[2018-09-23] MEDS: Ondansetron INJ* 2 MG/ML VIAL IV PRN (13:07)
--- NOTE | 2018-09-23 18:23 | PN ---
Progress Note - Progress Note Date of Service: 09/23/18 SOAP: Subjective: []Pain is better today. Still with nausea. Is passing gas. No fevers. Enoxaparin Sodium (Lovenox(*)) 90 mg SUBCUT DAILY@1999 [facility] Last Admin: 09/22/18 19:43 Dose: 90 mg Hydromorphone HCl (Dilaudid Inj1s*) 2 mg IV Q2H PRN PRN Reason: PAIN Last Admin: 09/23/18 11:44 Dose: 2 mg Sodium Chloride (Ns 0.9% 1000 Ml*) 1,000 mls @ 100 mls/hr IV PER RATE [facility] Last Admin: 09/23/18 13:18 Dose: 100 mls/hr Ceftriaxone Sodium 1 gm/ (Sodium Chloride) 50 mls @ 200 mls/hr IVPB Q24HR@1930 [facility] Last Admin: 09/22/18 19:43 Dose: 200 mls/hr Ondansetron HCl (Zofran Inj*) 4 mg IV Q4H PRN PRN Reason: NAUSEA/VOMITING Last Admin: 09/23/18 13:07 Dose: 4 mg Prochlorperazine Edisylate (Compazine Inj*) 10 mg IV Q6H PRN PRN Reason: NAUSEA Last Admin: 09/23/18 11:44 Dose: 10 mg Objective: [] Vital Signs Temp Pulse Resp BP Pulse Ox 98.3 F 53 18 103/65 99 09/23/18 11:40 09/23/18 11:40 09/23/18 13:06 09/23/18 11:40 09/23/18 11:40 HEENT: pale and thin, no distress CTA RRR S1S2 +BS, decreased, tender in RUQ + tr LUIS CT - mass increased from June and new SBO CA 19-9 > 1999 Assessment: []57 year old with progressive pancreatic cancer and SBO. Discussed that this is a terminal event. The bowl obstruction may clear or may not. If it does not he will be alive for as long as he stays on IVF up to several weeks. If it clears and he can eat, he will be at risk of re-occlusion. The prior discussion that he could have several months to live was before the bowl obstruction, the time is shorter. Plan: []1. Will follow for now and manage SBO actively, continue to check labs, continue IVF, check XR in am. No surgery. 2. DNR and DNI 3. Hospice on discharge regardless of path of SBO. 4. Daughter will come up from [place] over next day or two to bring family together. 5. Re-check PTT, if remains elevated adjust Lovenox face time 50 min > 50% of time spent counseling.
[2018-09-23] MEDS: cefTRIAXone(*) 1 GM in NS 0.9% 50 ML* 50 ML IVPB SCH (19:32)
[2018-09-23] MEDS: Enoxaparin(*) 100 MG/ML SYR SUBCUT SCH (19:33)
[2018-09-24] MEDS: PROCHLORPERAZINE INJ 5 MG/ML 2 ML VIAL IV PRN ×3 (05:02→21:18)
[2018-09-24] MEDS: HYDROmorphone INJ1* 1 MG/ML SYRINGE IV PRN ×4 (05:03→19:15)
[2018-09-24 05:42] LABS: ABS Basophils 0.1 10^3/ul (0-0.2); ABS Eosinophils 0.1 10^3/ul (0-0.6); ABS Lymphocytes 0.9 10^3/ul (1.0-4.8); ABS Monocytes 0.6 10^3/ul (0-0.8); ABS Neutrophils 3.7 10^3/ul (1.5-7.7); ABS Nucleated RBC 0 10^3/ul; Hematocrit 31 % (42-52); Hemoglobin 9.6 g/dl (14.0-18.0); Mean Corpuscular HGB Conc 32 g/dl (31-36); Mean Corpuscular Hemoglobin 25 pg (27-31); Mean Corpuscular Volume 79 fL (80-94); Mean Platelet Volume 9.5 um3 (7.4-10.4); Nucleated Red Blood Cells % 0.1; Platelet Count 314 10^3/ul (150-450); Red Blood Count 3.84 10^6/ul (4.00-5.40); Red Cell Distribution Width 16 % (10.5-15); White Blood Count 5.4 10^3/ul (3.5-10.8)
[2018-09-24 05:50] LABS: EGFR Non-African American 120.6 (>60)
--- NOTE | 2018-09-24 09:29 | RAD ---
Indication: Small bowel obstruction Flat and upright views of the abdomen demonstrates no free air. Moderately distended small bowel loops are noted which appears to BE improved since previous exam. There is suggestion of air in the hepatic flexure. IMPRESSION: Distended small bowel loops in the left abdomen which appear to BE improved since previous exam of September 14, 2017.
[2018-09-24] MEDS: NS 0.9% 1000 ML* 1,000 ML IV SCH ×2 (09:54→19:18)
--- NOTE | 2018-09-24 11:22 | PN ---
Progress Note - Progress Note Date of Service: 09/24/18 SOAP: Subjective: [Reports feeling ok today. Had BM this am, which sounds like it was semi- formed and of significant volume. No significant nausea and has an appetite.] Objective: [ Laboratory Results - last 24 hr 09/23/18 09/23/18 09/23/18 13:00 18:21 18:47 WBC RBC Hgb Hct MCV MCH MCHC RDW Plt Count MPV Neut % (Auto) Lymph % (Auto) [place]imble % (Auto) Eos % (Auto) Baso % (Auto) Absolute Neuts (auto) Absolute Lymphs (auto) Absolute Monos (auto) Absolute Eos (auto) Absolute Basos (auto) Absolute Nucleated RBC Nucleated RBC % APTT 33.5 Sodium Potassium Chloride Carbon Dioxide Anion Gap BUN Creatinine Est GFR ( Amer) Est GFR (Non-Af Amer) BUN/Creatinine Ratio Glucose POC Glucose (mg/dL) 122 H 111 H Calcium Magnesium Total Bilirubin AST ALT Alkaline Phosphatase Total Protein Albumin Globulin Albumin/Globulin Ratio 09/23/18 09/24/18 09/24/18 23:03 05:00 05:00 WBC 5.4 RBC 3.84 L Hgb 9.6 L Hct 31 L MCV 79 L MCH 25 L MCHC 32 RDW 16 H Plt Count 314 MPV 9.5 Neut % (Auto) 69.7 Lymph % (Auto) 16.0 L Trimble % (Auto) 11.0 H Eos % (Auto) 2.0 Baso % (Auto) 1.3 Absolute Neuts (auto) 3.7 Absolute Lymphs (auto) 0.9 L Absolute Monos (auto) 0.6 Absolute Eos (auto) 0.1 Absolute Basos (auto) 0.1 Absolute Nucleated RBC 0 Nucleated RBC % 0.1 APTT Sodium 134 L Potassium 4.0 Chloride 100 L Carbon Dioxide 20 L Anion Gap 14 H BUN 8 Creatinine 0.68 Est GFR ( Amer) 146.0 Est GFR (Non-Af Amer) 120.6 BUN/Creatinine Ratio 11.8 Glucose 108 H POC Glucose (mg/dL) 124 H Calcium 8.7 Magnesium 1.7 L Total Bilirubin 0.40 AST 49 H ALT 39 Alkaline Phosphatase 1147 H Total Protein 6.0 L Albumin 3.0 L Globulin 3.0 Albumin/Globulin Ratio 1.0 09/24/18 05:09 WBC RBC Hgb Hct MCV MCH MCHC RDW Plt Count MPV Neut % (Auto) Lymph % (Auto) Trimble % (Auto) Eos % (Auto) Baso % (Auto) Absolute Neuts (auto) Absolute Lymphs (auto) Absolute Monos (auto) Absolute Eos (auto) Absolute Basos (auto) Absolute Nucleated RBC Nucleated RBC % APTT Sodium Potassium Chloride Carbon Dioxide Anion Gap BUN Creatinine Est GFR ( Amer) Est GFR (Non-Af Amer) BUN/Creatinine Ratio Glucose POC Glucose (mg/dL) 125 H Calcium Magnesium Total Bilirubin AST ALT Alkaline Phosphatase Total Protein Albumin Globulin Albumin/Globulin Ratio Enoxaparin Sodium (Lovenox(*)) 90 mg SUBCUT DAILY@1999 [facility] Last Admin: 09/23/18 19:33 Dose: 90 mg Hydromorphone HCl (Dilaudid Inj1s*) 2 mg IV Q2H PRN PRN Reason: PAIN Last Admin: 09/24/18 08:28 Dose: 2 mg Sodium Chloride (Ns 0.9% 1000 Ml*) 1,000 mls @ 100 mls/hr IV PER RATE [facility] Last Admin: 09/24/18 09:54 Dose: 100 mls/hr Ceftriaxone Sodium 1 gm/ (Sodium Chloride) 50 mls @ 200 mls/hr IVPB Q24HR@1930 [facility] Last Admin: 09/23/18 19:32 Dose: 200 mls/hr Ondansetron HCl (Zofran Inj*) 4 mg IV Q4H PRN PRN Reason: NAUSEA/VOMITING Last Admin: 09/23/18 13:07 Dose: 4 mg Prochlorperazine Edisylate (Compazine Inj*) 10 mg IV Q6H PRN PRN Reason: NAUSEA Last Admin: 09/24/18 05:02 Dose: 10 mg Vital Signs: Temp Pulse Resp BP Pulse Ox 98.5 F 69 14 141/72 100 09/24/18 05:04 09/24/18 05:04 09/24/18 09:30 09/24/18 05:04 09/24/18 05:04 Exam: Gen: Chronically ill appearing 57 yo male in NAD CV: RRR, no m/r/g Resp: CTA, no w/c/r Abd: soft, TTP in RUQ, hypoactive BS present] Assessment: [57 yo male with metastatic pancreatic CA admitted with SBO.] Plan: [1. SBO - improved - advance to clear liquids for lunch, if tolerated can try full liquids for dinner or breakfast tomorrow 2. Metastatic pancreatic CA - recent progressive disease - plan for home with Hospice Dispo: possible dc home tomorrow if tolerates liquids today]
[2018-09-24] MEDS: Ondansetron INJ* 2 MG/ML VIAL IV PRN (14:43)
[2018-09-24] MEDS: cefTRIAXone(*) 1 GM in NS 0.9% 50 ML* 50 ML IVPB SCH (19:37)
[2018-09-24] MEDS: Enoxaparin(*) 100 MG/ML SYR SUBCUT SCH (19:39)
[2018-09-25] MEDS: HYDROmorphone INJ1* 1 MG/ML SYRINGE IV PRN ×3 (00:19→09:08)
[2018-09-25] MEDS: Ondansetron INJ* 2 MG/ML VIAL IV PRN ×2 (00:22→09:09)
[2018-09-25] MEDS: PROCHLORPERAZINE INJ 5 MG/ML 2 ML VIAL IV PRN (04:36)
[2018-09-25] MEDS: NS 0.9% 1000 ML* 1,000 ML IV SCH (04:43)
[2018-09-25 12:10] VITALS: BP 129/78
--- NOTE | 2018-09-26 13:24 | DS ---
CC: Juan Alberto Morocho MD; Gary Starks MD * DISCHARGE SUMMARY: DATE OF ADMISSION: 09/21/18 DATE OF DISCHARGE: 09/25/18 PRIMARY CARE PROVIDER: Gary Starks MD PRIMARY ONCOLOGIST: Juan Alberto Morocho MD ATTENDING PHYSICIAN: Ender Ron MD * (DICTATED BY ANDRAE SWIFT) DISCHARGING PROVIDER: ANDRAE Swift DISCHARGE DIAGNOSES: 1. Small bowel obstruction. 2. Metastatic pancreatic cancer with significant recent progression and plan for discharge to home with hospice services. 3. Insulin-dependent diabetes. 4. Superior mesenteric vein thrombosis/portal vein thrombosis. DISCHARGE MEDICATIONS: 1. Afrezza 12 units inhaled daily. 2. Alfuzosin 10 mg p.o. daily. 3. Bupropion 300 mg p.o. daily. 4. Vitamin D 5000 units p.o. daily. 5. Lovenox 90 mg subcu daily. 6. Dilaudid 4 mg p.o. q.4 hours as needed. 7. Lantus. 8. Ativan 0.5 mg p.o. q.4 hours as needed. 9. Nadolol 40 mg p.o. daily. 10. Nucynta 50 mg p.o. twice daily. 11. Zofran 4 mg p.o. q.4 hours as needed for nausea and vomiting. 12. Pancrelipase 24,000 units p.o. 3 times daily with meals. 13. Pantoprazole 40 mg p.o. twice daily. Medication change: 1. Discontinue glipizide. HOSPITAL IMAGIN. Abdominal x-ray 09/21/18 shows no evidence for obstruction. 2. CT abdomen and pelvis shows findings suggestive of a partial mid small bowel obstruction and interval resolution of previously noted heterogenous hepatic enhancement and superior mesenteric vein thrombosis. 3. Multiple hypodense hepatic lesions suspicious for metastatic disease, which are unchanged. 4. Ill-defined soft tissue density mass in the left upper quadrant likely representing local recurrent disease. 5. Small amount of ascites. 6. Abdominal x-ray 09/24/18 shows distended small bowel loops in the left abdomen which appeared to be improved since prior exam. HOSPITAL COURSE: This is a 57-year-old gentleman with metastatic pancreatic cancer treated with palliative Gemzar and Abraxane, who presented to the emergency department with complaints of increased abdominal pain. Initial workup in the emergency department showed an unremarkable KUB with CT scan suggestive of partial small bowel obstruction, for which the patient was subsequently admitted to the hospital. He had no significant nausea or vomiting and for this reason, NG tube was not placed. He was placed on bowel rest with IV fluids and pain control with IV narcotics. Initial labs demonstrated a mild anemia as well as hyponatremia and elevated alk phos, but otherwise unremarkable. His PTT at admission was noted to be quite high as well , but upon repeat was within normal limits, likely due to the initial sample being drawn from his port with recent heparin instilled. The patient's pain was adequately controlled and serial imaging showed some improvement in loops of small bowel. She had a bowel movement and was subsequently able to tolerate a liquid diet without increase in his pain or nausea. Prior to his hospitalization, he recently had a large increase in his CA 19-9 in the setting of small bowel obstruction. Conversation between he and his primary oncologist, Dr. Morocho was to discontinue further chemotherapy and the patient will be discharged home with hospice services. DISPOSITION AND FOLLOWUP PLAN: The patient will be discharged home with hospice services as discussed above. Follow up in the medical oncology office will be on an as needed basis. Recommended maintaining a soft and/or liquid low -fiber diet to avoid further re-obstruction. ANDRAE SWIFT [id number]/[facility] #: [id number] [facility]
== END 2018-09-25 12:45 | disposition hospice, home (50) | DRG 247 ==
LOC: ED 11:25 → MED 17:42
PROVIDERS: ADMIT Internal Medicine Hematology & Oncology; ATTEND Internal Medicine Hematology & Oncology
DX: K56.600 Partial intestinal obstruction, unspecified as to cause (principal); I81 Portal vein thrombosis; C78.7 Secondary malignant neoplasm of liver and intrahepatic bile duct; N39.0 Urinary tract infection, site not specified; C25.2 Malignant neoplasm of tail of pancreas; E11.9 Type 2 diabetes mellitus without complications; F32.9 Major depressive disorder, single episode, unspecified; B96.20 Unspecified Escherichia coli [E. coli] as the cause of diseases classified elsewhere; E78.00 Pure hypercholesterolemia, unspecified; Z79.4 Long term (current) use of insulin; Z79.891 Long term (current) use of opiate analgesic; Z79.899 Other long term (current) drug therapy
CPT/HCPCS: 36415; 74018; 74019; 74177; 80048; 80053; 83605; 83690; 83735; 84484; 85025; 85610; 85730; 99232; 99233; 99239; 99284; J0696; J0780; J1170; J1642; J1650; J2270; J2405; Q9967